=== PATIENT | female | born 1995 | race Caucasian/White ===

== ENCOUNTER → 2021-01-17 | Outpatient (CLI) | payer BC | LOC: COL.RAD 12:45 | DX: E04.9 Nontoxic goiter, unspecified (principal); R10.13 Epigastric pain ==

== ENCOUNTER → 2021-01-23 | Outpatient (CLI) | payer BC | LOC: COL.RAD 11:26 | DX: E05.90 Thyrotoxicosis, unspecified without thyrotoxic crisis or storm (principal) | CPT/HCPCS: A9516 ==